=== PATIENT | male | born 1995 | race Caucasian/White ===

== ENCOUNTER 2017-05-26 16:09 | Emergency (ER) | payer OTHER ==
[2017-05-26 16:18] VITALS: BP 138/79; PULSE 105; O2SAT 96
[2017-05-26] MEDS ORDERED: BACIGUENT PACKET TP ONE (16:21)
[2017-05-26] MEDS ORDERED: XYLOCAINE 1% HCL 20 ML MDV IJ ONE (16:21)
[2017-05-26] MEDS ORDERED: XYLOCAINE 1% HCL 20 ML MDV ONE (16:22)
--- NOTE | 2017-05-26 16:34 | ERPHSYRPT ---
- History of Present Illness Time Seen by Provider: 05/26/17 16:20 Source: patient Patient Subjective Stated Complaint: PT REPORTS MAKING KNIVES-STATES THAT HE WAS WORKING ON THEM WHEN A KNIFE CAME DOWN ON INDEX FINGER OF LEFT HAND Triage Nursing Assessment: PT PINK WARM ET DRY-LAC NOTED TO INDEX FINGER WITH BLEEDING CONTROLLED PLAYGROUND AIDE Physician History: CC: cut finger hx: 21 y/o healthy patient cut left index finger on a knife at home. Some tingling. Tetanus up to date. No other injuries. Severity of Pain-Max: moderate Severity of Pain-Current: moderate Extremities Pain Location: 2nd finger: left Allergies/Adverse Reactions: azithromycin [From Zithromax] Allergy (Mild, Verified 05/26/17 16:16) Hives Home Medications: Methylphenidate HCl [Ritalin] 20 mg PO DAILY 05/26/17 [History] Venlafaxine HCl [Effexor] 75 mg PO DAILY 05/26/17 [History] Hx Tetanus, Diphtheria Vaccination/Date Given: Yes Hx Influenza Vaccination/Date Given: Yes Hx Pneumococcal Vaccination/Date Given: No Immunizations Up to Date: Yes - Review of Systems Musculoskeletal: Injury (left index finger) Neurological: Parasthesia, No Focal Weakness - Past Medical History Pertinent Past Medical History: Yes Neurological History: No Pertinent History ENT History: No Pertinent History Cardiac History: No Pertinent History Respiratory History: No Pertinent History Endocrine Medical History: No Pertinent History Musculoskeletal History: No Pertinent History GI Medical History: No Pertinent History History: No Pertinent History Psycho-Social History: No Pertinent History Male Reproductive Disorders: No Pertinent History Other Medical History: narcolepsy - Past Surgical History Past Surgical History: No - Social History Smoking Status: Never smoker Exposure to second hand smoke: No Drug Use: none Patient Lives Alone: No - Nursing Vital Signs Nursing Vital Signs: Initial Vital Signs Temperature 98.2 F 05/26/17 16:18 Pulse Rate 105 H 05/26/17 16:18 Respiratory Rate 18 05/26/17 16:18 Blood Pressure 138/79 05/26/17 16:18 O2 Sat by Pulse Oximetry 96 05/26/17 16:18 Pain Scale Pain Intensity 3 - Physical Exam General Appearance: alert Cardiovascular/Respiratory Exam: regular rate/rhythm Neuro/Tendon Exam: normal motor functions, normal tendon functions, no evidence tendon injury, sensory deficit (left index finger radial distal to injury), No tendon function deficit Mental Status Exam: alert, oriented x 3, cooperative Skin Exam: warm, dry SpO2 Interpretation: normal SpO2: 96 Oxygen Delivery: Room Air Procedures - Laceration/Wound Repair left index finger Wound Length (cm): 4.5 Wound Explored: moderately contaminated (nu skin with which he tried to repair the wound at home) Irrigated: Yes Hibiclens Prep: Yes Anesthesia: digital block, 1% Lidocaine Volume Anesthetic (ccs): 3 Wound Repaired With: sutures Suture Size/Type: 4-0, nylon Number of Sutures: 6 Progress: 05/26/17 16:55 Wound instr given. - Course Nursing assessment & vital signs reviewed: Yes Ordered Tests: Active Orders 24 hr Category Date Time Status Prepare for Sutures STAT Care 05/26/17 16:21 Active Sutures STAT Care 05/26/17 16:21 Active Wound Care STAT Care 05/26/17 16:21 Active Medication Summary Discontinued Medications Generic Name Dose Route Start Last Admin Trade Name Freq PRN Reason Stop Dose Admin Bacitracin 0.9 gm 05/26/17 16:21 Baciguent Packet TP 05/26/17 16:22 STAT ONE Lidocaine HCl 5 ml 05/26/17 16:21 Xylocaine 1% Hcl 20 Ml Mdv IJ 05/26/17 16:22 STAT ONE Lidocaine HCl Confirm 05/26/17 16:22 Xylocaine 1% Hcl 20 Ml Mdv Administered 05/26/17 16:23 Dose 5 ml .ROUTE .STK-MED ONE - Progress Progress Note: 05/26/17 16:31 3ml 1% plain lidocaine used for digital block. He has some distal nerve deficit. Discussed possible hand surgeon repair. He chose no hand surgoen and will wait and see how it heals. He understands may have intermediate manager sensory deficit that is irreparable. Will close wound. Counseled pt/family regarding: diagnosis, need for follow-up - Departure Time of Disposition: 16:56 Departure Disposition: Home Clinical Impression: Laceration of left index finger Qualifiers: Encounter type: initial encounter Damage to nail status: without damage Foreign body presence: without foreign body Qualified Code(s): S61.211A - Laceration without foreign body of left index finger without damage to nail, initial encounter Condition: Stable Critical Care Time: No Referrals: SAIRA WILLIAMSON [Primary Care Provider] - DOCTOR,NO FAMILY [NON-STAFF PHY W/O PRIVILEGES] - Instructions: Care for a Laceration After Repair Additional Instructions: LACERATION CARE 1. Do not use peroxide, merthiolate, alcohol, or betadine. 2. Keep wound clean and dry. 3. Change dressing if it becomes wet or soiled. 4. If you must work, wear protective covering. 5. You may return to the emergency department or see your family physician for suture removal. 6. See your family physician or return to the emergency department for any of the following signs or symptoms: A. Redness B. Swelling C. Discolored drainage D. Red streaks E. Elevated temperature F. Other signs of infection Suture removal in 10 days.
[2017-05-26] MEDS ORDERED: BACIGUENT PACKET ONE (16:54)
== END 2017-05-26 17:18 | disposition home or self-care (01) ==
LOC: ED 16:09
PROC: 0HQGXZZ Repair Left Hand Skin, External Approach (ICD-10-PCS; principal; 2017-05-26)
DX: S61.211A Laceration without foreign body of left index finger without damage to nail, initial encounter (principal); W26.0XXA Contact with knife, initial encounter
CPT/HCPCS: 12002; 99283; 99285; A9270-GY